=== PATIENT | female | born 1960 | race Caucasian/White ===

== ENCOUNTER 2020-03-13 13:09 | Outpatient (CLI) | payer MEDICAID ==
[2020-03-13] MEDS ORDERED: SIMV20TA19 PO (14:30)
[2020-03-13] MEDS ORDERED: AMIT10TA PO (14:30)
[2020-03-13] MEDS ORDERED: Pt. to Bring List (14:30)
[2020-03-13] MEDS ORDERED: TIOT4MIS3 INH (14:30)
[2020-03-13] MEDS ORDERED: ALBU6.7H8 INH (14:30)
== END 2020-03-13 23:59 | disposition home or self-care (01) ==
LOC: STAR 13:09
PROVIDERS: ATTEND Otolaryngology
DX: Z01.818 Encounter for other preprocedural examination (principal); Z11.59 Encounter for screening for other viral diseases; C01 Malignant neoplasm of base of tongue; C13.9 Malignant neoplasm of hypopharynx, unspecified; R06.1 Stridor
CPT/HCPCS: 93005; U0001

== ENCOUNTER → 2020-03-15 | Outpatient (CLI) | payer MEDICAID ==
[~2020-03-15] MED LIST: ALBU6.7H8 INH; AMIT10TA PO; FLUT1DIS IH; MONT10TA11 PO; Pt. to Bring List; SIMV20TA19 PO; TIOT4MIS3 INH
== END | disposition home or self-care (01) ==
LOC: PETCFH 07:15
PROVIDERS: ATTEND Otolaryngology
DX: C01 Malignant neoplasm of base of tongue (principal); J43.2 Centrilobular emphysema; R22.1 Localized swelling, mass and lump, neck
CPT/HCPCS: 78815; A9552

== ENCOUNTER 2020-03-16 12:04 | Day surgery (SDC) | payer MEDICAID ==
[~2020-03-16] VITALS: Ht 165.1 cm; Wt 90.1 kg
[~2020-03-16 12:04] MED LIST changes: -FLUT1DIS IH; -MONT10TA11 PO
[2020-03-16] MEDS ORDERED: LACTATED RINGERS 1,000 ML IV STA (12:20)
[2020-03-16] MEDS ORDERED: CHLORHEXIDINE 15 ML UDC MM STA (12:20)
[2020-03-16] MEDS ORDERED: LIDOCAINE-MPF 1%, 2ML INFIL STA (12:20)
[2020-03-16 12:21] VITALS: BP 152/92
[2020-03-16] MEDS ORDERED: MONT10TA11 PO (12:27)
[2020-03-16] MEDS ORDERED: FLUT1DIS IH (12:27)
[2020-03-16] MEDS ORDERED: LIDOCAINE-MPF 1%, 2ML ONE (12:30)
[2020-03-16] MEDS ORDERED: CHLORHEXIDINE 15 ML UDC ONE (12:31)
[2020-03-16] MEDS ORDERED: CHLORHEXIDINE 15 ML UDC MM ONE (13:00)
[2020-03-16] MEDS ORDERED: LACTATED RINGERS 1,000 ML IV ONE (13:00)
[2020-03-16] MEDS ORDERED: LIDOCAINE-MPF 1%, 2ML INFIL ONE (13:00)
[2020-03-16] MEDS ORDERED: FENTANYL PF 250 MCG/5ML ONE (14:04)
[2020-03-16] MEDS ORDERED: MIDAZOLAM 1 MG/ML, 2ML ONE (14:04)
[2020-03-16] MEDS ORDERED: LIDOCAINE 1%-EPI 1:100K, 20ML ONE (14:17)
[2020-03-16] MEDS ORDERED: hydrALAzine 20 MG/ML, 1ML IV PRN (15:00)
[2020-03-16] MEDS ORDERED: PROMETHAZINE 25 MG/ML, 1ML IVPush PRN (15:00)
[2020-03-16] MEDS ORDERED: morphine SULFATE 10 MG/ML, 1ML IVPush PRN (15:00)
[2020-03-16] MEDS ORDERED: ONDANSETRON 2MG/ML, 2ML IVPush PRN (15:00)
[2020-03-16] MEDS ORDERED: OXYcodone 5 MG/5 ML ORAL.SOL UDC PO PRN (15:00)
[2020-03-16] MEDS ORDERED: ACETAMINOPHEN 325 MG TABLET PO PRN (15:00)
[2020-03-16] MEDS ORDERED: LABETALOL 5MG/ML, 20ML IV PRN (15:00)
[2020-03-16] MEDS ORDERED: FENTANYL PF 100 MCG/2ML IV PRN (15:00)
[2020-03-16] MEDS ORDERED: DEXAMETHASONE 4 MG/ML, 1ML ONE (15:09)
[2020-03-16] MEDS ORDERED: PROPOFOL 10 MG/ML, 20ML ONE (15:17)
[2020-03-16] MEDS ORDERED: ROCURONIUM 10MG/ML,5ML ONE (15:17)
[2020-03-16] MEDS ORDERED: SUCCINYLCHOLINE 20 MG/ML, 10ML ONE (15:17)
[2020-03-16] MEDS ORDERED: ONDANSETRON 2MG/ML, 2ML ONE (15:17)
[2020-03-16] MEDS ORDERED: ACETAMINOPHEN 650 MG/20.3 ML UDC ONE (16:37)
== END 2020-03-16 17:40 | disposition home or self-care (01) ==
LOC: OR 12:04
PROVIDERS: ATTEND Otolaryngology
DX: C32.9 Malignant neoplasm of larynx, unspecified (principal); J44.9 Chronic obstructive pulmonary disease, unspecified; G43.909 Migraine, unspecified, not intractable, without status migrainosus; G47.30 Sleep apnea, unspecified; Z79.82 Long term (current) use of aspirin; Z79.899 Other long term (current) drug therapy; Z87.891 Personal history of nicotine dependence; Z99.81 Dependence on supplemental oxygen; Z98.890 Other specified postprocedural states
CPT/HCPCS: 31535; 88305; 88331; J0330; J1100; J2250; J2405; J2704; J3010; J3490; J7120; 88342

== ENCOUNTER 2020-04-06 13:17 | Inpatient (IN) | payer MEDICAID ==
[~2020-04-06] VITALS: Ht 162.6 cm; Wt 88.6 kg
[~2020-04-06 13:17] MED LIST changes: +FLUT1DIS IH; +LIDOCAINE 1%-EPI 1:100K, 20ML ONE; +MONT10TA11 PO; +MUPIROCIN OINT 2%, 22GM ONE
[2020-04-06 13:44] VITALS: BP 161/95
[2020-04-06] MEDS ORDERED: LACTATED RINGERS 1,000 ML IV SCH ×2 (13:47→14:01)
[2020-04-06] MEDS ORDERED: CHLORHEXIDINE 15 ML UDC ONE (13:50)
[2020-04-06] MEDS ORDERED: MIDAZOLAM 1 MG/ML, 2ML ONE (13:55)
[2020-04-06] MEDS ORDERED: FENTANYL PF 250 MCG/5ML ONE (13:55)
[2020-04-06] MEDS ORDERED: CHLORHEXIDINE 15 ML UDC MM ONE (14:00)
[2020-04-06] MEDS ORDERED: CEFAZOLIN 1,000 MG ONE (15:59)
[2020-04-06] MEDS ORDERED: SUCCINYLCHOLINE 20 MG/ML, 10ML ONE (15:59)
[2020-04-06] MEDS ORDERED: SUGAMMADEX 200 MG/2 ML IVPush ONE (15:59)
[2020-04-06] MEDS ORDERED: PROPOFOL 10 MG/ML, 20ML ONE (15:59)
[2020-04-06] MEDS ORDERED: FENTANYL PF 100 MCG/2ML ONE (17:30)
[2020-04-06] MEDS ORDERED: HYDROmorphone 1 MG/ML, 1ML INJ ONE (17:31)
[2020-04-06] MEDS: FENTANYL PF 100 MCG/2ML IV PRN (17:40)
[2020-04-06] MEDS ORDERED: ONDANSETRON 2MG/ML, 2ML IVPush PRN (18:00)
[2020-04-06] MEDS ORDERED: OXYcodone 5 MG/5 ML ORAL.SOL UDC PO PRN (18:00)
[2020-04-06] MEDS ORDERED: HYDROmorphone 1 MG/ML, 1ML INJ IVPush PRN (18:00)
[2020-04-06] MEDS: D5%-LACTATED RINGERS 1,000 ML IV SCH (19:21)
[2020-04-07] MEDS: FENTANYL PF 100 MCG/2ML IV PRN ×2 (00:20→04:04)
[2020-04-07 04:10] VITALS: BP 143/74
[2020-04-07 04:16] VITALS: BP 124/62
[2020-04-07] MEDS: D5%-LACTATED RINGERS 1,000 ML IV SCH ×2 (05:25→15:14)
[2020-04-07] MEDS: ENOXAPARIN 40 MG/0.4 ML SQ SCH (05:27)
[2020-04-07] MEDS ORDERED: hydrALAzine 20 MG/ML, 1ML IVPush PRN (05:30)
[2020-04-07] MEDS: ALBUTEROL/IPRATROPIUM 2.5MG/0.5MG, 3 ML NPPB SCH ×5 (07:10→22:20)
[2020-04-07] MEDS: BUDESONIDE 0.5 MG/2 ML INHA NPPB SCH ×3 (07:10→18:40)
[2020-04-07 07:14] LABS: ALBUMIN 3.1 g/dL (3.4-5.0)
[2020-04-07 07:17] LABS: BILIRUBIN,TOTAL 1.1 mg/dL (0.2-1.0); TOTAL PROTEIN 6.8 g/dL (6.4-8.2)
[2020-04-07 07:23] LABS: BILIRUBIN, DIRECT 0.2 mg/dL (0.1-0.2); BILIRUBIN,INDIRECT 0.9 mg/dL (0.0-2.0)
[2020-04-07] MEDS ORDERED: TIOTROPIUM BROMIDE INH SCH (09:00)
[2020-04-07] MEDS ORDERED: OLODATEROL INH SCH (09:00)
[2020-04-07 09:11] LABS: MEAN CORPUSCULAR HEMOGLOBIN 30.7 pg (27.0-34.8); MEAN CORPUSCULAR HGB CONC 32.5 g/dL (32.4-35.8); MEAN CORPUSCULAR VOLUME 94.3 fL (80-100); MEAN PLATELET VOLUME 7.9 fL (7.4-10.4); PLATELET COUNT 273 x10^3/uL (130-400); RED BLOOD COUNT 5.33 x10^6/uL (3.82-5.3); RED CELL DISTRIBUTION WIDTH 13.7 % (9.6-15.2)
[2020-04-07 09:45] LABS: MD YES
[2020-04-07 09:48] LABS: BAND#(MANUAL) 0.21 x10^3/uL; BANDS%(MANUAL) 1 % (0-7); LYMPH#(MANUAL) 2.47 x10^3/uL (1-3.4); LYMPHS% (MANUAL) 12 % (22-44); MONOS#(MANUAL) 1.03 x10^3/uL (0.3-2.7); MONOS% (MANUAL) 5 % (2-9); SEG#(MANUAL) 16.89 x10^3/uL (1.8-6.8); SEGS% (MANUAL) 82 % (42-75)
[2020-04-07 09:49] LABS: <PLATELET ESTIMATE> ADEQUATE; <PLT MORPHOLOGY> NORMAL PLT MORPH; <RBC MORPHOLOGY> NORMAL
[2020-04-07 09:55] LABS: CALCIUM 8.5 mg/dL (8.5-10.1)
--- NOTE | 2020-04-07 10:04 | NUR ---
TF GOAL: see 04/07 RD NOTE
[2020-04-07 10:26] LABS: ANION GAP 5 mmol/L (5-15); CHLORIDE 106 mmol/L (98-107)
[2020-04-07 12:35] LABS: FREE T4 (FREE THYROXINE) 1.48 ng/dL (0.76-1.46)
[2020-04-07] MEDS ORDERED: FENTANYL PF 100 MCG/2ML ONE ×2 (16:01→19:41)
[2020-04-07] MEDS ORDERED: FLUMAZENIL 0.1 MG/1 ML, 5ML ONE (16:02)
[2020-04-07] MEDS ORDERED: MIDAZOLAM 1 MG/ML, 5ML ONE (16:02)
[2020-04-07] MEDS ORDERED: NALOXONE 1 MG/ML, 2ML ONE (16:02)
[2020-04-07] MEDS ORDERED: FENTANYL PF 100 MCG/2ML IV ONE (20:00)
[2020-04-08] MEDS: D5%-LACTATED RINGERS 1,000 ML IV SCH ×2 (01:19→21:42)
[2020-04-08] MEDS: ALBUTEROL/IPRATROPIUM 2.5MG/0.5MG, 3 ML NPPB SCH ×5 (02:20→18:30)
[2020-04-08 02:51] LABS: MICROSCOPIC INDICATED
[2020-04-08] MEDS: KETOROLAC 30 MG/1 ML IVPush PRN ×3 (02:56→23:45)
[2020-04-08 04:04] LABS: BASOPHILS # (AUTO) 0.08 x10^3/uL (0-0.1); BASOPHILS % (AUTO) 1 % (0-1); EOSINOPHILS # (AUTO) 0.11 x10^3/uL (0-0.4); EOSINOPHILS % (AUTO) 1 % (1-7); LYMPHOCYTES # (AUTO) 1.17 x10^3/uL (1-3.4); LYMPHOCYTES % (AUTO) 8 % (22-44); MD NO; MEAN CORPUSCULAR HEMOGLOBIN 30.3 pg (27.0-34.8); MEAN CORPUSCULAR HGB CONC 32.7 g/dL (32.4-35.8); MEAN CORPUSCULAR VOLUME 92.7 fL (80-100); MEAN PLATELET VOLUME 8.4 fL (7.4-10.4); MONOCYTES # (AUTO) 1.07 x10^3/uL (0.2-0.8); MONOCYTES % (AUTO) 7 % (2-9); NEUTROPHILS # (AUTO) 12.05 x10^3/uL (1.8-6.8); NEUTROPHILS % (AUTO) 83 % (42-75); PLATELET COUNT 236 x10^3/uL (130-400); RED BLOOD COUNT 4.95 x10^6/uL (3.82-5.3); RED CELL DISTRIBUTION WIDTH 13.4 % (9.6-15.2)
[2020-04-08 04:35] VITALS: BP 110/53
[2020-04-08] MEDS: ENOXAPARIN 40 MG/0.4 ML SQ SCH (05:06)
[2020-04-08] MEDS: BUDESONIDE 0.5 MG/2 ML INHA NPPB SCH ×2 (06:30→18:30)
[2020-04-08] MEDS ORDERED: LIDOCAINE-MPF 1%, 2ML ENDO PRN (10:00)
[2020-04-08] MEDS ORDERED: SMOF TPN IV SCH ×3 (17:00→17:45)
[2020-04-08] MEDS ORDERED: [UNRECOGNIZED DRUG - OTHER] IV SCH (17:00)
[2020-04-08] MEDS ORDERED: PVN PER PHARMACY IV SCH (17:00)
[2020-04-08] MEDS ORDERED: DEXTROSE 70% IV SCH ×3 (17:00→17:45)
[2020-04-08] MEDS ORDERED: DEXTROSE 10% 500 ML IV PRN (17:00)
[2020-04-08] MEDS ORDERED: AMINO ACID 10% IV SCH ×3 (17:00→17:45)
[2020-04-08] MEDS ORDERED: TPN PER PHARMACY MC PRN (17:00)
[2020-04-08] MEDS ORDERED: FAT EMUL IV SCH ×3 (17:00→17:45)
[2020-04-08] MEDS ORDERED: DEXTROSE 50%, 50ML SYRINGE IVPush PRN (17:00)
[2020-04-08] MEDS ORDERED: [UNRECOGNIZED DRUG - OTHER] IV SCH (17:37)
[2020-04-08] MEDS ORDERED: [UNRECOGNIZED DRUG - OTHER] IV SCH (17:45)
[2020-04-08 20:30] VITALS: BP 120/76
[2020-04-08] MEDS: FILTER, DISP 1.2 MICRON FOR TPN/PVN IV PRN (21:38)
[2020-04-09 00:48] VITALS: BP 111/73
[2020-04-09] MEDS: ALBUTEROL/IPRATROPIUM 2.5MG/0.5MG, 3 ML NPPB SCH ×4 (01:29→19:55)
[2020-04-09] MEDS: INSULIN REGULAR MEDIUM DOSE Q6H X 48HRS SQ-INSULIN SCH ×3 (02:00→15:49)
[2020-04-09] MEDS: ENOXAPARIN 40 MG/0.4 ML SQ SCH (05:33)
[2020-04-09] MEDS: KETOROLAC 30 MG/1 ML IVPush PRN ×3 (05:42→23:54)
[2020-04-09 05:55] LABS: ALBUMIN 2.3 g/dL (3.4-5.0); ANION GAP 8 mmol/L (5-15); CALCIUM 8.7 mg/dL (8.5-10.1); CHLORIDE 108 mmol/L (98-107)
[2020-04-09 05:59] LABS: ALANINE AMINOTRANSFERASE 15 U/L (12-78); ALKALINE PHOSPHATASE 81 U/L (45-117); CREATININE 0.56 mg/dL (0.55-1.02); TOTAL PROTEIN 5.7 g/dL (6.4-8.2)
[2020-04-09] MEDS: BUDESONIDE 0.5 MG/2 ML INHA NPPB SCH ×2 (07:00→19:55)
[2020-04-09 10:00] VITALS: BP 120/73
[2020-04-09] MEDS ORDERED: BISACODYL 10 MG SUPP PR PRN (10:00)
[2020-04-09] MEDS ORDERED: DOCUSATE 100 MG CAPSULE PO PRN (10:00)
[2020-04-09 14:30] VITALS: BP 126/84
[2020-04-09] MEDS: D5%-LACTATED RINGERS 1,000 ML IV SCH (15:16)
[2020-04-09] MEDS ORDERED: [UNRECOGNIZED DRUG - OTHER] IV SCH ×2 (17:00)
[2020-04-09] MEDS ORDERED: FAT EMUL IV SCH ×2 (17:00)
[2020-04-09] MEDS ORDERED: SMOF TPN IV SCH ×2 (17:00)
[2020-04-09] MEDS ORDERED: DEXTROSE 70% IV SCH ×2 (17:00)
[2020-04-09] MEDS ORDERED: AMINO ACID 10% IV SCH ×2 (17:00)
[2020-04-09] MEDS: FILTER, DISP 1.2 MICRON FOR TPN/PVN IV PRN (17:10)
[2020-04-09] MEDS ORDERED: TPN PER PHARMACY MC PRN (17:30)
[2020-04-09 20:04] VITALS: BP 119/77
[2020-04-10 02:35] VITALS: BP 115/76
[2020-04-10 05:57] LABS: ALANINE AMINOTRANSFERASE 20 U/L (12-78); ALBUMIN 2.4 g/dL (3.4-5.0); ANION GAP 10 mmol/L (5-15); CALCIUM 9.3 mg/dL (8.5-10.1); CHLORIDE 110 mmol/L (98-107); CREATININE 0.51 mg/dL (0.55-1.02)
[2020-04-10 06:01] LABS: ALKALINE PHOSPHATASE 96 U/L (45-117); BILIRUBIN,TOTAL 1.8 mg/dL (0.2-1.0); PREALBUMIN 9.8 mg/dL (20.0-40.0); TOTAL PROTEIN 6.3 g/dL (6.4-8.2)
[2020-04-10 06:10] LABS: BASOPHILS % (AUTO) 1 % (0-1); EOSINOPHILS % (AUTO) 4 % (1-7); LYMPHOCYTES # (AUTO) 1.54 x10^3/uL (1-3.4); LYMPHOCYTES % (AUTO) 14 % (22-44); MD NO; MEAN CORPUSCULAR HEMOGLOBIN 30.7 pg (27.0-34.8); MEAN CORPUSCULAR HGB CONC 33.3 g/dL (32.4-35.8); MEAN CORPUSCULAR VOLUME 92.1 fL (80-100); MEAN PLATELET VOLUME 8.8 fL (7.4-10.4); MONOCYTES # (AUTO) 1.18 x10^3/uL (0.2-0.8); MONOCYTES % (AUTO) 11 % (2-9); NEUTROPHILS # (AUTO) 7.93 x10^3/uL (1.8-6.8); NEUTROPHILS % (AUTO) 71 % (42-75); PLATELET COUNT 257 x10^3/uL (130-400); RED BLOOD COUNT 4.73 x10^6/uL (3.82-5.3); RED CELL DISTRIBUTION WIDTH 12.9 % (9.6-15.2)
[2020-04-10] MEDS: KETOROLAC 30 MG/1 ML IVPush PRN ×4 (06:13→20:20)
[2020-04-10] MEDS: ENOXAPARIN 40 MG/0.4 ML SQ SCH (06:15)
[2020-04-10] MEDS: BUDESONIDE 0.5 MG/2 ML INHA NPPB SCH ×2 (06:20→21:06)
[2020-04-10] MEDS: ALBUTEROL/IPRATROPIUM 2.5MG/0.5MG, 3 ML NPPB SCH ×3 (06:20→21:06)
[2020-04-10] MEDS: INSULIN REGULAR 100 UNITS/ML, 3ML VIAL SQ-INSULIN SCH (08:04)
[2020-04-10 09:00] VITALS: BP 115/75
[2020-04-10 14:41] VITALS: BP 134/76
[2020-04-10] MEDS ORDERED: FAT EMUL IV SCH (17:00)
[2020-04-10] MEDS ORDERED: [UNRECOGNIZED DRUG - OTHER] IV SCH (17:00)
[2020-04-10] MEDS ORDERED: SMOF TPN IV SCH (17:00)
[2020-04-10] MEDS ORDERED: AMINO ACID 10% IV SCH (17:00)
[2020-04-10] MEDS ORDERED: DEXTROSE 70% IV SCH (17:00)
[2020-04-10] MEDS: FILTER, DISP 1.2 MICRON FOR TPN/PVN IV PRN (17:32)
[2020-04-10] MEDS ORDERED: BUPIVACAINE/PF-EPI 0.5% 1:200K ONE (17:53)
[2020-04-10] MEDS ORDERED: FENTANYL PF 100 MCG/2ML ONE ×2 (17:53→18:45)
[2020-04-10] MEDS ORDERED: ROCURONIUM 10 MG/ML,10ML ONE (18:12)
[2020-04-10] MEDS ORDERED: EPHEDRINE 50 MG/ML, 1ML IVPush PRN (19:00)
[2020-04-10] MEDS ORDERED: DIPHENHYDRAMINE 50 MG/ML, 1ML IVPush PRN (19:00)
[2020-04-10] MEDS ORDERED: FENTANYL PF 100 MCG/2ML IV PRN (19:00)
[2020-04-10] MEDS ORDERED: ONDANSETRON 2MG/ML, 2ML IVPush PRN (19:00)
[2020-04-10] MEDS ORDERED: LABETALOL 5MG/ML, 20ML IV PRN (19:00)
[2020-04-10] MEDS ORDERED: PROMETHAZINE 25 MG/ML, 1ML IVPush PRN (19:00)
[2020-04-10] MEDS ORDERED: morphine SULFATE 10 MG/ML, 1ML IVPush PRN (19:00)
[2020-04-10] MEDS ORDERED: EPHEDRINE 50 MG/ML, 1ML IM PRN (19:00)
[2020-04-10 20:06] VITALS: BP 110/71
[2020-04-10 23:40] VITALS: BP 118/79
[2020-04-11 01:44] VITALS: BP 118/76
[2020-04-11] MEDS: KETOROLAC 30 MG/1 ML IVPush PRN ×3 (02:00→19:34)
[2020-04-11] MEDS: ALBUTEROL/IPRATROPIUM 2.5MG/0.5MG, 3 ML NPPB SCH ×4 (03:13→19:30)
[2020-04-11 04:23] LABS: ANION GAP 8 mmol/L (5-15); CALCIUM 8.5 mg/dL (8.5-10.1); CHLORIDE 110 mmol/L (98-107); CREATININE 0.47 mg/dL (0.55-1.02)
[2020-04-11] MEDS: INSULIN REGULAR MEDIUM DOSE QDAY SQ-INSULIN SCH ×2 (05:32→21:00)
[2020-04-11] MEDS: ENOXAPARIN 40 MG/0.4 ML SQ SCH (05:37)
[2020-04-11 07:18] VITALS: BP 136/80
[2020-04-11] MEDS: INSULIN REGULAR 100 UNITS/ML, 3ML VIAL SQ-INSULIN SCH (09:00)
[2020-04-11] MEDS: BUDESONIDE 0.5 MG/2 ML INHA NPPB SCH ×2 (09:50→19:30)
[2020-04-11] MEDS ORDERED: MORPHINE SULFATE 4 MG/ML, 1ML IV PRN (10:30)
[2020-04-11] MEDS ORDERED: VANCOMYCIN PER PHARMACY MC PRN (10:30)
[2020-04-11] MEDS ORDERED: PHARMACOKINETIC MONITORING MC PRN (11:00)
[2020-04-11] MEDS: VANCOMYCIN 1,800 MG in SODIUM CHLORIDE 0.9% 250 ML IV SCH (12:40)
[2020-04-11 14:02] VITALS: BP 122/74
[2020-04-11] MEDS ORDERED: SMOF TPN IV SCH (17:00)
[2020-04-11] MEDS ORDERED: [UNRECOGNIZED DRUG - OTHER] IV SCH (17:00)
[2020-04-11] MEDS ORDERED: FAT EMUL IV SCH (17:00)
[2020-04-11] MEDS ORDERED: DEXTROSE 70% IV SCH (17:00)
[2020-04-11] MEDS ORDERED: AMINO ACID 10% IV SCH (17:00)
[2020-04-11] MEDS: FILTER, DISP 1.2 MICRON FOR TPN/PVN IV PRN (18:23)
[2020-04-11 19:19] VITALS: BP 150/88
[2020-04-11] MEDS: ACETAMINOPHEN 325 MG TABLET PO PRN (19:34)
[2020-04-12 00:35] VITALS: BP 124/77
[2020-04-12] MEDS: VANCOMYCIN 1,800 MG in SODIUM CHLORIDE 0.9% 250 ML IV SCH ×2 (00:37→12:12)
[2020-04-12] MEDS: KETOROLAC 30 MG/1 ML IVPush PRN ×3 (02:40→19:48)
[2020-04-12] MEDS: ALBUTEROL/IPRATROPIUM 2.5MG/0.5MG, 3 ML NPPB SCH ×4 (03:00→19:49)
[2020-04-12 05:39] LABS: BASOPHILS # (AUTO) 0.03 x10^3/uL (0-0.1); BASOPHILS % (AUTO) 0 % (0-1); EOSINOPHILS # (AUTO) 0.41 x10^3/uL (0-0.4); EOSINOPHILS % (AUTO) 4 % (1-7); LYMPHOCYTES # (AUTO) 1.32 x10^3/uL (1-3.4); LYMPHOCYTES % (AUTO) 12 % (22-44); MD NO; MEAN CORPUSCULAR HEMOGLOBIN 30.5 pg (27.0-34.8); MEAN CORPUSCULAR HGB CONC 32.9 g/dL (32.4-35.8); MEAN CORPUSCULAR VOLUME 92.7 fL (80-100); MEAN PLATELET VOLUME 8.1 fL (7.4-10.4); MONOCYTES # (AUTO) 1.09 x10^3/uL (0.2-0.8); MONOCYTES % (AUTO) 10 % (2-9); NEUTROPHILS # (AUTO) 8.21 x10^3/uL (1.8-6.8); NEUTROPHILS % (AUTO) 74 % (42-75); PLATELET COUNT 272 x10^3/uL (130-400); RED BLOOD COUNT 4.49 x10^6/uL (3.82-5.3); RED CELL DISTRIBUTION WIDTH 12.9 % (9.6-15.2)
[2020-04-12] MEDS: ENOXAPARIN 40 MG/0.4 ML SQ SCH (05:40)
[2020-04-12 05:44] LABS: ALBUMIN 2.1 g/dL (3.4-5.0); ANION GAP 9 mmol/L (5-15); CHLORIDE 109 mmol/L (98-107); CREATININE 0.49 mg/dL (0.55-1.02)
[2020-04-12 07:31] VITALS: BP 145/80
[2020-04-12] MEDS: BUDESONIDE 0.5 MG/2 ML INHA NPPB SCH ×2 (08:42→19:49)
[2020-04-12 13:17] VITALS: BP 140/80
[2020-04-12 18:38] VITALS: BP 131/75
[2020-04-12] MEDS: ACETAMINOPHEN 325 MG TABLET PO PRN (23:44)
[2020-04-13 00:03] VITALS: BP 121/72
[2020-04-13] MEDS: VANCOMYCIN 1,800 MG in SODIUM CHLORIDE 0.9% 250 ML IV SCH (00:55)
[2020-04-13] MEDS: ALBUTEROL/IPRATROPIUM 2.5MG/0.5MG, 3 ML NPPB SCH ×4 (03:04→21:00)
[2020-04-13] MEDS: ENOXAPARIN 40 MG/0.4 ML SQ SCH (05:14)
[2020-04-13] MEDS: ACETAMINOPHEN 325 MG TABLET PO PRN ×2 (06:25→23:08)
[2020-04-13 07:13] VITALS: BP 123/77
[2020-04-13] MEDS: BUDESONIDE 0.5 MG/2 ML INHA NPPB SCH ×2 (08:30→21:00)
[2020-04-13] MEDS: SULFAMETH./TRIMETHOPRIM DS 800MG/160MG TABLET GT SCH ×2 (09:31→22:24)
[2020-04-13 14:17] VITALS: BP 130/74
[2020-04-13 19:03] VITALS: BP 123/68
[2020-04-14 00:44] VITALS: BP 120/68
[2020-04-14] MEDS: ALBUTEROL/IPRATROPIUM 2.5MG/0.5MG, 3 ML NPPB SCH ×4 (02:01→20:28)
[2020-04-14] MEDS: ENOXAPARIN 40 MG/0.4 ML SQ SCH (05:42)
[2020-04-14 07:00] VITALS: BP 120/81
[2020-04-14] MEDS: BUDESONIDE 0.5 MG/2 ML INHA NPPB SCH ×2 (09:00→20:28)
[2020-04-14] MEDS: SULFAMETH./TRIMETHOPRIM DS 800MG/160MG TABLET GT SCH ×2 (09:40→20:45)
[2020-04-14 13:30] VITALS: BP 138/85
[2020-04-14 20:34] VITALS: BP 121/66
[2020-04-15 00:50] VITALS: BP 109/59
[2020-04-15] MEDS: ALBUTEROL/IPRATROPIUM 2.5MG/0.5MG, 3 ML NPPB SCH ×4 (03:00→20:48)
[2020-04-15] MEDS: ENOXAPARIN 40 MG/0.4 ML SQ SCH (05:40)
[2020-04-15] MEDS: SULFAMETH./TRIMETHOPRIM DS 800MG/160MG TABLET GT SCH ×2 (08:00→20:23)
[2020-04-15 08:41] VITALS: BP 110/71
[2020-04-15] MEDS: BUDESONIDE 0.5 MG/2 ML INHA NPPB SCH ×2 (09:00→20:48)
[2020-04-15 12:27] VITALS: BP 112/73
[2020-04-15] MEDS ORDERED: Sulfameth./Trimethoprim Ds GT (14:39)
[2020-04-15] MEDS ORDERED: SIMV20TA19 GT (14:39)
[2020-04-15] MEDS ORDERED: IPRA3AMP30 NPPB (14:39)
[2020-04-15] MEDS ORDERED: AMIT10TA GT (14:39)
[2020-04-15] MEDS ORDERED: BUDE0.5A NPPB (14:39)
[2020-04-15 21:09] VITALS: BP 115/65
[2020-04-16 00:03] VITALS: BP 109/65
[2020-04-16] MEDS: ALBUTEROL/IPRATROPIUM 2.5MG/0.5MG, 3 ML NPPB SCH ×4 (02:09→20:05)
[2020-04-16] MEDS: ENOXAPARIN 40 MG/0.4 ML SQ SCH (05:01)
[2020-04-16 05:04] LABS: CREATININE 0.81 mg/dL (0.55-1.02)
[2020-04-16] MEDS: BUDESONIDE 0.5 MG/2 ML INHA NPPB SCH ×2 (07:15→20:05)
[2020-04-16 08:33] VITALS: BP 114/69
[2020-04-16] MEDS: SULFAMETH./TRIMETHOPRIM DS 800MG/160MG TABLET GT SCH ×2 (08:41→21:27)
[2020-04-16 12:58] VITALS: BP 112/62
[2020-04-16 18:53] VITALS: BP 111/65
[2020-04-17] MEDS: ALBUTEROL/IPRATROPIUM 2.5MG/0.5MG, 3 ML NPPB SCH ×3 (02:50→15:40)
[2020-04-17 03:48] VITALS: BP 95/57
[2020-04-17 05:04] LABS: BASOPHILS # (AUTO) 0.12 x10^3/uL (0-0.1); BASOPHILS % (AUTO) 1 % (0-1); EOSINOPHILS # (AUTO) 0.49 x10^3/uL (0-0.4); EOSINOPHILS % (AUTO) 5 % (1-7); LYMPHOCYTES # (AUTO) 2.14 x10^3/uL (1-3.4); LYMPHOCYTES % (AUTO) 22 % (22-44); MD NO; MEAN CORPUSCULAR HEMOGLOBIN 30.3 pg (27.0-34.8); MEAN CORPUSCULAR HGB CONC 32.7 g/dL (32.4-35.8); MEAN CORPUSCULAR VOLUME 92.6 fL (80-100); MEAN PLATELET VOLUME 8.3 fL (7.4-10.4); MONOCYTES # (AUTO) 0.81 x10^3/uL (0.2-0.8); MONOCYTES % (AUTO) 8 % (2-9); NEUTROPHILS # (AUTO) 6.32 x10^3/uL (1.8-6.8); NEUTROPHILS % (AUTO) 64 % (42-75); PLATELET COUNT 323 x10^3/uL (130-400); RED BLOOD COUNT 4.71 x10^6/uL (3.82-5.3)
[2020-04-17 05:10] LABS: ALBUMIN 2.6 g/dL (3.4-5.0); ANION GAP 7 mmol/L (5-15); CALCIUM 9.1 mg/dL (8.5-10.1); CHLORIDE 106 mmol/L (98-107); CREATININE 0.89 mg/dL (0.55-1.02)
[2020-04-17] MEDS: ENOXAPARIN 40 MG/0.4 ML SQ SCH (05:35)
[2020-04-17 07:06] VITALS: BP 122/67
[2020-04-17] MEDS: SULFAMETH./TRIMETHOPRIM DS 800MG/160MG TABLET GT SCH (09:03)
[2020-04-17] MEDS: BUDESONIDE 0.5 MG/2 ML INHA NPPB SCH (09:20)
[2020-04-17] MEDS ORDERED: Sulfameth./Trimethoprim Ds GT (10:15)
[2020-04-17 12:55] VITALS: BP 127/63
[2020-04-17 13:06] VITALS: BP 127/70
== END 2020-04-17 18:36 | disposition home health service (06) | DRG 11 ==
LOC: ORIP 13:17 → EDSTATUS 15:30 → CCU 18:34 → 3WST 04-08 17:13
PROVIDERS: ADMIT Otolaryngology; ATTEND Otolaryngology
PROC: 0B110F4 Bypass Trachea to Cutaneous with Tracheostomy Device, Open Approach (ICD-10-PCS; 2020-04-06)
PROC: 3E0G76Z Introduction of Nutritional Substance into Upper GI, Via Natural or Artificial Opening (ICD-10-PCS; principal; 2020-04-11)
PROC: 0B21XFZ Change Tracheostomy Device in Trachea, External Approach (ICD-10-PCS; 2020-04-12)
DX: C32.0 Malignant neoplasm of glottis (principal); J15.211 Pneumonia due to Methicillin susceptible Staphylococcus aureus; J44.0 Chronic obstructive pulmonary disease with (acute) lower respiratory infection; J96.11 Chronic respiratory failure with hypoxia; Z16.29 Resistance to other single specified antibiotic; J90 Pleural effusion, not elsewhere classified; E78.5 Hyperlipidemia, unspecified; K11.7 Disturbances of salivary secretion; K21.9 Gastro-esophageal reflux disease without esophagitis; K22.2 Esophageal obstruction; Z66 Do not resuscitate; F17.200 Nicotine dependence, unspecified, uncomplicated; F32.9 Major depressive disorder, single episode, unspecified; Z53.9 Procedure and treatment not carried out, unspecified reason; Z79.51 Long term (current) use of inhaled steroids; Z85.21 Personal history of malignant neoplasm of larynx; Z93.1 Gastrostomy status; Z99.81 Dependence on supplemental oxygen; Z88.6 Allergy status to analgesic agent; Z87.81 Personal history of (healed) traumatic fracture
CPT/HCPCS: 36415; 74230; J3475; J3490; J7121; J7626; 71045; 80048; 80053; 80076; 80202; 81001; 82040; 82565; 82962; 83735; 84100; 84134; 84439; 84443; 84481; 85025; 86850; 86900; 87070; 87077; 87081; 87086; 87186; 87205; 93005; 94640; G0378; J0610; J0690; J1170; J1644; J1650; J1885; J2250; J2704; J3010; J3370; 92522-GN; J0330; J1720; J2270; J2310; J3420; J7050; J7120; U0001-CS

== ENCOUNTER 2020-04-13 08:36 | Outpatient (CLI) | payer MEDICAID ==
[~2020-04-13 08:36] MED LIST changes: -LIDOCAINE 1%-EPI 1:100K, 20ML ONE; -MUPIROCIN OINT 2%, 22GM ONE
== END 2020-04-13 23:59 | disposition home or self-care (01) ==
LOC: ROC 08:36
PROVIDERS: ATTEND Radiology Radiation Oncology
DX: Z02.9 Encounter for administrative examinations, unspecified (principal)

== ENCOUNTER 2020-07-07 07:27 | Outpatient (CLI) | payer MEDICAID ==
[~2020-07-07 07:27] MED LIST changes: +AMIT10TA GT; +BUDE0.5A NPPB; +IPRA3AMP30 NPPB; +SIMV20TA19 GT; +Sulfameth./Trimethoprim Ds GT
== END 2020-07-07 23:59 | disposition home or self-care (01) ==
LOC: ROC 07:27
PROVIDERS: ATTEND Radiology Radiation Oncology
DX: C32.1 Malignant neoplasm of supraglottis (principal); J44.9 Chronic obstructive pulmonary disease, unspecified; J96.10 Chronic respiratory failure, unspecified whether with hypoxia or hypercapnia; K21.9 Gastro-esophageal reflux disease without esophagitis; E78.5 Hyperlipidemia, unspecified; F32.9 Major depressive disorder, single episode, unspecified; Z79.82 Long term (current) use of aspirin; Z79.51 Long term (current) use of inhaled steroids; Z87.891 Personal history of nicotine dependence; Z99.81 Dependence on supplemental oxygen
CPT/HCPCS: 99213; G0463

== ENCOUNTER → 2020-09-27 | Outpatient (CLI) | payer MEDICAID | END | disposition home or self-care (01) | LOC: PETCFH 08:24 | PROVIDERS: ATTEND Radiology Radiation Oncology | DX: C32.1 Malignant neoplasm of supraglottis (principal); J43.2 Centrilobular emphysema | CPT/HCPCS: 78815; A9552 ==

== ENCOUNTER 2020-10-02 07:35 | Outpatient (CLI) | payer MEDICAID | END 2020-10-02 23:59 | disposition home or self-care (01) | LOC: ROC 07:35 | PROVIDERS: ATTEND Radiology Radiation Oncology | DX: Z08 Encounter for follow-up examination after completed treatment for malignant neoplasm (principal); J43.2 Centrilobular emphysema; Z85.21 Personal history of malignant neoplasm of larynx; Z87.891 Personal history of nicotine dependence; Z93.1 Gastrostomy status; Z99.81 Dependence on supplemental oxygen | CPT/HCPCS: 99212; G0463 ==

== ENCOUNTER 2020-12-28 07:22 | Outpatient (CLI) | payer MEDICAID ==
[~2020-12-28 07:22] MED LIST changes: -MONT10TA11 PO; +MONT10TA17 PO
== END 2020-12-28 23:59 | disposition home or self-care (01) ==
LOC: ROC 07:22
PROVIDERS: ATTEND Radiology Radiation Oncology
DX: Z08 Encounter for follow-up examination after completed treatment for malignant neoplasm (principal); Z85.21 Personal history of malignant neoplasm of larynx
CPT/HCPCS: 99213; G0463

== ENCOUNTER → 2021-01-24 | Outpatient (CLI) | payer MEDICAID | END | disposition home or self-care (01) | LOC: RAD 09:19 | PROVIDERS: ATTEND Radiology Radiation Oncology | DX: K31.89 Other diseases of stomach and duodenum (principal); R13.10 Dysphagia, unspecified | CPT/HCPCS: 74230 ==

== ENCOUNTER 2021-02-07 16:44 | Emergency (ER) | payer MEDICAID ==
[~2021-02-07] VITALS: Ht 165.1 cm; Wt 73.5 kg
--- NOTE | 2021-02-07 16:50 | NUR ---
pt BIB ambulance from home c/o SOB x2 days after having her trach tube replaced yesterday. pt reports that she has had a trach for about 1 year after throat surgery for cancer. pt reports that she has been feeling increasingly SOB. denies Cp. sitting up on gurney in position of comfort. no bleeding noted from trach site. pt is on her baseline O2 of 8L. no family at bedside
--- NOTE | 2021-02-07 17:34 | NUR ---
RT at bedside
--- NOTE | 2021-02-07 17:50 | NUR ---
pt has had humidified O2 instruction from RT and suctioning performed. pt now denies SOB. pt to be D/c . pt states that her family can bring her O2 for transport home. no new c/o. awaiting O2 for D/C
[2021-02-07 18:19] VITALS: BP 115/66
== END 2021-02-07 18:36 | disposition home or self-care (01) ==
LOC: ED 17:49
DX: R06.00 Dyspnea, unspecified (principal); J95.09 Other tracheostomy complication
CPT/HCPCS: 99283

== ENCOUNTER → 2021-03-29 | Outpatient (CLI) | payer MEDICAID | END | disposition home or self-care (01) | LOC: ROC 07:22 | PROVIDERS: ATTEND Radiology Radiation Oncology | DX: C32.1 Malignant neoplasm of supraglottis (principal); R13.10 Dysphagia, unspecified; H92.02 Otalgia, left ear; Z93.1 Gastrostomy status | CPT/HCPCS: 99212; G0463 ==

== ENCOUNTER → 2021-04-11 | Outpatient (CLI) | payer MEDICAID | END | disposition home or self-care (01) | LOC: PETCFH 12:34 | PROVIDERS: ATTEND Otolaryngology | DX: C01 Malignant neoplasm of base of tongue (principal); C13.9 Malignant neoplasm of hypopharynx, unspecified; C32.1 Malignant neoplasm of supraglottis; C32.9 Malignant neoplasm of larynx, unspecified; J98.11 Atelectasis; M46.1 Sacroiliitis, not elsewhere classified | CPT/HCPCS: 78815; A9552 ==

== ENCOUNTER → 2021-05-03 | Outpatient (CLI) | payer MEDICAID | END | disposition home or self-care (01) | LOC: RAD 09:46 | PROVIDERS: ATTEND Radiology Radiation Oncology | DX: C32.1 Malignant neoplasm of supraglottis (principal); R13.10 Dysphagia, unspecified; K22.2 Esophageal obstruction | CPT/HCPCS: 74230 ==

== ENCOUNTER 2021-07-26 07:39 | Outpatient (CLI) | payer MEDICAID | END 2021-07-26 23:59 | disposition home or self-care (01) | LOC: ROC 07:39 | PROVIDERS: ATTEND Radiology Radiation Oncology | DX: Z08 Encounter for follow-up examination after completed treatment for malignant neoplasm (principal); Z85.21 Personal history of malignant neoplasm of larynx | CPT/HCPCS: 99213; G0463 ==